=== PATIENT | female | born 1965 | race Caucasian/White ===

== ENCOUNTER 2016-10-03 15:47 | Inpatient (IN) | payer MEDICARE ==
[~2016-10-03] VITALS: Ht 157.5 cm; Wt 85.4 kg
--- NOTE | ~2016-10-03 | DS ---
PATIENT'S NAME: MARAH CUNNINGHAM [facility] AGE: 51 Y [address] ROOM: [id number] [place], [place] [address] LOCATION: GPCU ADMIT DATE: 10/03/2016 Discharge Summary DISCHARGE DATE: 10/09/2016 FAMILY PHYSICIAN: Tucker Tyson MD ATTENDING PHYSICIAN: Ulises Jiménez PRIMARY DIAGNOSES: 1. Chronic obstructive pulmonary disease exacerbation. 2. Acute on chronic hypoxic hypercarbic respiratory failure. 3. Bilateral lobe pneumonia. 4. Metabolic alkalosis. 5. Chronic conditions include seizure disorder, Parkinson disease, diabetes type 2, migraine headache. PRINCIPAL PROCEDURES: Done, none was indicated on the patient. LABORATORY DATA: On admission, ABG on admission was pH 7.29, PO2 114, pCO2 was 68; and the repeat the next day, pCO2 was 73, pH was 7.32, and PO2 was 65% on FiO2 of 40%. WBC on admission was 7.7, was stable throughout the hospital stay, prior to discharge was 10.5; H and H on admission was 11.8/38.1, prior to discharge was 11.6/38.6; platelets were 199, were stable throughout hospital stay, prior to discharge were 166. Sodium was stable throughout the hospital stay, upon discharge it was 141; potassium as well was stable throughout hospital stay, upon discharge was 3.9; bicarb on admission was 29, prior to discharge was 40, patient had received Diamox, after this was obtained 250 mg had a urine output of almost 1100 mL. Magnesium was stable throughout hospital stay, at 2.0 upon discharge. Phosphorus as well was stable. Liver function tests were within normal limits. Hemoglobin A1c was 6.1. Procalcitonin was 0.09. Valproic acid level was 59. MICROBIOLOGY: Blood culture was no growth after 5 days x2 sets. Urine for Legionella antigen was negative. Urine for streptococcal antigen was negative as well. HOSPITAL COURSE: For the history of present illness, please take a look at the H and P which was done by Dr. Jiménez. The patient was admitted to progressive care unit and was managed as a case of acute on chronic hypoxic hypercarbic respiratory failure which was attributed to a COPD exacerbation. She was started on high dose of Solu-Medrol and also was started on IV Levaquin. She was continued on the IV Levaquin. She was continued on antibiotics up until discharge when it was discontinued. Solu-Medrol was slowly tapered. At the initial onset of admission, she did require BiPAP for the first day and subsequently BiPAP was switched to p.r.n. only at nighttime. She did require the use of BiPAP at nighttime throughout her hospital stay. Progressively, her oxygen demand decreased from 5 L to her baseline of 3 L of PATIENT'S NAME: MARAH CUNNINGHAM [facility] AGE: 51 Y [address] ROOM: [id number] [place], [place] [address] LOCATION: GPCU ADMIT DATE: 10/03/2016 Discharge Summary DISCHARGE DATE: 10/09/2016 FAMILY PHYSICIAN: Tucker Tyson MD ATTENDING PHYSICIAN: Ulises Jiménez A nasal cannula with her hospital stay. Given her requirement of requiring a BiPAP at nighttime and also given her obesity, old records did show that the patient did get a sleep study test done sometime in April 2016 at [facility], which was essentially normal and did not have any sleep apnea. She was continued on the Solu-Medrol, continued on aggressive pulmonary toileting, and also by the second day of the hospital stay, she was started on physical therapy and occupational therapy and clinically she did improve with each day. On the day of discharge, her ABG which was obtained showed pCO2 of 77; however, clinically the patient appeared stable, was not drowsy, and she was having at that point her breakfast and she was basically back at her baseline; however, her CO2 on the chemistry did show a level of 40 and she was given Diamox for 4 days and she did have a urine output of around 1100 mL prior to discharge. Vital signs were stable upon discharge. She was on her baseline oxygen of 3 L chronically and she was discharged home. DISCHARGE INSTRUCTIONS: The patient is to follow up with her PCP and on upon visit, PCP is to repeat her BMP to follow up on the level of the CO2 as the patient was discharged home on Diamox for an additional 2 days. The patient was also discharged with home health. MEDICATIONS ON DISCHARGE: 1. Amitriptyline 150 mg p.o. q.h.s. 2. Librium 10 mg p.o. q.h.s. 3. Neurontin 300 mg p.o. 3 times daily. 4. Hydroxyzine 25-50 mg p.o. q.h.s. 5. Lovastatin 40 mg p.o. q.h.s. 6. Protonix 40 mg p.o. twice daily. 7. Levaquin 750 mg p.o. daily for an additional 5 more days. 8. Zoloft 150 mg p.o. q.h.s. 9. Valproic acid 500 mg p.o. twice daily. 10. Verapamil 60 mg p.o. 3 times daily. 11. DuoNeb 1 vial 4 times daily. 12. Breo Ellipta 1 puff every day. 13. Tylenol with Codeine No. 3 one-two tablets p.o. 4 times daily p.r.n. 14. Percocet 5/325 mg 1-2 tablets p.o. every 4 hours p.r.n. 15. Phenergan 25 mg p.o. q.4 hours p.r.n. 16. VESIcare 5 mg p.o. q.a.m. 17. Vitamin C 500 mg p.o. daily. 18. Albuterol 1 puff every 4 hours p.r.n. 19. Albuterol 1 vial every 4 hours p.r.n. 20. Diamox 250 mg daily p.o. for 2 more days, to start tomorrow on October 10, 2016. Discharge time spent on this patient is approximately 35 minutes, which included counseling the patient on her discharge planning. PATIENT'S NAME: MARAH CUNNINGHAM [facility] AGE: 51 Y [address] ROOM: [place] [address] [facility] ADMIT DATE: 10/03/2016 Discharge Summary DISCHARGE DATE: 10/09/2016 FAMILY PHYSICIAN: Tucker Tyson MD ATTENDING PHYSICIAN: Ulises Jiménez MD NORM KIMBLE/violet /[id number] d: 10/10/16 0125 t: 10/10/16 1652, DISCHARGE SUMMARY
--- NOTE | ~2016-10-03 | HP ---
PATIENT'S NAME: MARAH CUNNINGHAM [facility] AGE: 51 Y [address] ROOM: [place] [address] LOCATION: GPCU ADMIT DATE: 10/03/2016 History & Physical DISCHARGE DATE: FAMILY PHYSICIAN: Tucker Tyson MD ATTENDING PHYSICIAN: BONNIE MCCALL DATE OF SERVICE: CHIEF COMPLAINT: Shortness of breath. HISTORY OF PRESENT ILLNESS: A 51-year-old lady with a past medical history of COPD, oxygen dependent, presented to the outside physician with a chief complaint of shortness of breath, which has been going on for 2 weeks. She chronically used 2 L of oxygen at home at all the time. She started getting more short of breath than her usual and noticed change in the color of her sputum and increased frequency of her rescue inhaler at that time. At primary care physician's office, she was found to be hypoxic and then transferred over here in the private vehicle to the emergency department. On my encounter, she is saying that she is short of breath, feeling a little better after getting a DuoNeb treatment in the emergency department. Did report that she is having green sputum for past 2 weeks. Denied any fever or chills though. On further inquiry, she denied having any palpitations, any chest pain, any trouble with the eyes, any abdominal pain, any constipation, or any diarrhea. Of note, she said she had been in the wheelchair since 1993 and no diagnosis was made at that point. She denied any burning on urination, any constipation, or any diarrhea at this point. She endorsed having terrible migraine headaches as well. REVIEW OF SYSTEMS: All other systems reviewed and were negative except as mentioned in the HPI. PAST MEDICAL HISTORY: Significant for: 1. Chronic respiratory failure with 3 L of oxygen at home and mainly secondary to COPD. 2. Type 2 diabetes mellitus without insulin use. 3. Migraine headaches. 4. Epilepsy. 5. Parkinson's disease. 6. Rmwnlf-da-xoptlwp disease. 7. Lower back pain. 8. Gastroparesis. 9. Depression. PATIENT'S NAME: MARAH CUNNINGHAM [facility] AGE: 51 Y [address] ROOM: [place] [address] LOCATION: GPCU ADMIT DATE: 10/03/2016 History & Physical DISCHARGE DATE: FAMILY PHYSICIAN: Tucker Tyson MD ATTENDING PHYSICIAN: BONNIE MCCALL. Peripheral neuropathy. MEDICATIONS: Medications are being reconciled right now. ALLERGIES: THE PATIENT IS NOT ALLERGIC TO ANY MEDICATIONS. FAMILY HISTORY: Family history is significant for diabetes in mom. SOCIAL HISTORY: The patient quit smoking in 2014 after smoking lifelong. No alcohol or drug abuse. PHYSICAL EXAMINATION: VITAL SIGNS: Blood pressure 134/67, respiratory rate of 22, saturating 93% on 3 L of oxygen, and heart rate of 92. GENERAL: In mild acute distress due to shortness of breath. Alert and oriented x3. HEENT: Head: Atraumatic, normocephalic. Eyes: Nonicteric. No pallor. Oropharynx: Moist mucous membranes. CARDIOVASCULAR: Tachycardic. S1, S2. No murmur or gallops heard. LUNGS: Diffuse expiratory wheezes and decreased air entry bilaterally. ABDOMEN: Soft, distended, nontender, bowel sounds are present. EXTREMITIES: No clubbing, cyanosis, or edema. PSYCH: Normal affect, mood, and speech. MUSCULOSKELETAL: No muscle tenderness or joint swelling noted. LABORATORY DATA: Chest x-ray was reviewed by me and it does appear that there is infiltrate bilaterally in the lower lobes. Lab work was done in the emergency department, which is significant for ABG with a pH of 7.29, pCO2 of 68, pO2 of 114 on 3 L of oxygen. Pro-BNP was 188. CBC was unremarkable and so was the BMP except mild hyponatremia at 134. Procalcitonin was 0.09. ASSESSMENT: 1. Kuztg-px-ncxjlcz hypoxic as well as hypercarbic respiratory failure. 2. Chronic obstructive pulmonary disease exacerbation. 3. Bilateral lower lobe pneumonia. 4. Type 2 diabetes mellitus. 5. Migraine headaches. 6. Epilepsy. 7. Parkinson's disease. 8. Qoxfkx-bf-stzfxxx disease. PATIENT'S NAME: MARAH CUNNINGHAM [facility] AGE: 51 Y [address] ROOM: [id number] [place] [id number] LOCATION: GPCU ADMIT DATE: 10/03/2016 History & Physical DISCHARGE DATE: FAMILY PHYSICIAN: Tucker Tyson MD ATTENDING PHYSICIAN: BONNIE MCCALL 9. Lower back pain. 10. Depression. 11. Gastroparesis. 12. Peripheral neuropathy. PLAN: We are going to admit this patient to Progressive Care Unit. Inhalation treatment with DuoNeb have been started. One dose of Solu-Medrol IV has been given. We are going to put on noninvasive ventilation with BiPAP with settings of 15/5. We will continue to monitor her ABG and her clinical status. Levofloxacin has been started to treat her pneumonia as well as COPD exacerbation. We will control her diabetes with the sliding scale insulin and Accu-Cheks series. PT/OT will be ordered. Once the home medications are reconciled, we will restart all the home medications if appropriate. BONNIE MCCALL MD LU/modl /[id number] D: [id number] T: [id number] HISTORY & PHYSICAL
--- NOTE | ~2016-10-03 | ER ---
PATIENT'S NAME: MARAH CUNNINGHAM [facility] AGE: 51 Y [address] ROOM: [address] [address] LOCATION: [facility] ADMIT DATE: 10/03/2016 ER/Outpatient Report DISCHARGE DATE: FAMILY PHYSICIAN: Tucker Tyson MD ATTENDING PHYSICIAN: BONNIE MCCALL Time of Arrival: 1547 hours. Time of Evaluation: 1601 hours. IDENTIFICATION: A 51-year-old female. CHIEF COMPLAINT: Shortness of breath. HISTORY OF PRESENT ILLNESS: The patient is a 51-year-old female with a history of COPD, usually on home O2; according to her 3 L; according to Dr. Tyson, 1 to 2 L at home. She went to the clinic in [place] today with short of breath with saturations of 63% on O2, so they recommended she come here. She came here by private vehicle. On arrival, her saturations were 83% on 3 L. She is short of breath. She has had cough productive of green sputum. No fever or chills. No recent steroid use. ALLERGIES: IMITREX, SULFA, ASPIRIN, IBUPROFEN, ALDACTONE, AND MORPHINE. CURRENT MEDICATIONS: 1. Gabapentin 300 mg t.i.d. 2. Hydroxyzine 25 mg 1 to 2 at bedtime. 3. Chlordiazepoxide/amitriptyline 10/25 daily. 4. Sertraline 100 mg one and half tablet daily. 5. Pantoprazole 40 mg 2 times daily. 6. VESIcare 5 mg daily. 7. Breo Ellipta 100/25 one inhalation daily. 8. DuoNeb p.r.n., which she says she is not using. 9. Vitamin C 500 mg 2 times daily. 10. Reglan 5 mg t.i.d. 11. Fish oil 1000 mg t.i.d. 12. Mevacor 40 mg at bedtime. 13. Vitamin D3, 5000 units daily. 14. Valproic acid 250 mg b.i.d. 15. Seroquel 400 mg at bedtime. 16. Amitriptyline 150 mg at bedtime. PATIENT'S NAME: MARAH CUNNINGHAM [facility] AGE: 51 Y [address] ROOM: [id number] [place], [place] [address] LOCATION: [facility] ADMIT DATE: 10/03/2016 ER/Outpatient Report DISCHARGE DATE: FAMILY PHYSICIAN: Tucker Tyson MD ATTENDING PHYSICIAN: BONNIE MCCALL medications: 1. ProAir. 2. Verapamil. 3. Albuterol. 4. Percocet. 5. Promethazine. 6. Tylenol with Codeine. MEDICAL PROBLEMS: Obesity, migraine headaches, COPD, diabetic neuropathy, epilepsy, atypical bipolar disorder, restless legs syndrome, peripheral vascular disease, Parkinson disease, diabetes mellitus type 2, opioid dependence with opioid induced psychotic disorder, macrocytic anemia, vitamin D deficiency, cataract, low back pain, gastroparesis, and depression. PRIOR SURGERIES: Hysterectomy and appendectomy. SOCIAL HISTORY: The patient is . Lives in [place]. Tobacco use, the patient states she quit smoking 2 years ago. Alcohol use, denies. Drug use, denies. REVIEW OF SYSTEMS: All systems reviewed and negative other than what is noted in the HPI. PHYSICAL EXAMINATION: VITAL SIGNS: Weight 82.3 kg, blood pressure 119/65, pulse 106, respirations 22, temperature 98.7, and saturations 83% on 3 L per nasal cannula. GENERAL: A 51-year-old female, in mild distress. HEENT: Head: Normocephalic and atraumatic. Ears: TMs translucent both ears. Eyes: Pupils equal and reactive to light and accommodation. Extraocular movements intact. Nose: Mucosa pink. No lesions or drainage. Mouth: No lesions. Pharynx benign. NECK: Supple. No lymphadenopathy. LUNGS: Diminished breath sounds throughout. HEART: Sinus tachycardia. ABDOMEN: Bowel sounds present. Soft. Nondistended. No hepatosplenomegaly. No palpable masses. Nontender. SKIN: [place], warm, and dry. No lesions or rashes noted. NEURO: The patient is alert and oriented x4. Cranial nerves II through XII grossly intact. Motor strength 5/5 throughout. Sensation is intact to light touch. No lower extremity edema. LABORATORY DATA AND X-RAYS: Blood cultures x2 pending. Sodium 134, potassium 3.9, chloride 95, CO2 of 29, PATIENT'S NAME: MARAH CUNNINGHAM [facility] AGE: 51 Y [address] ROOM: [id number] [place], [place] [address] LOCATION: GPCU ADMIT DATE: 10/03/2016 ER/Outpatient Report DISCHARGE DATE: FAMILY PHYSICIAN: Tucker Tyson MD ATTENDING PHYSICIAN: BONNIE MCCALL BUN 12, creatinine 0.9, and blood sugar 124. Liver enzymes normal. ProBNP 188. Procalcitonin 0.09. ABGs; pH of 7.29, pCO2 of 68, pO2 of 114, and lactate 0.55. Hemoglobin 11.8, hematocrit 38.1, platelets 199, and white count 7.7 with a normal differential. The patient has a do not resuscitate order and a copy is included on the chart. She requests no intubation if necessary. EKG showed sinus tachycardia at 106 beats per minute, nonspecific ST-T wave changes. Chest x-ray showed COPD changes and bibasilar infiltrate. IMPRESSION: 1. Chronic obstructive pulmonary disease exacerbation. 2. Pneumonia with hypoxia. 3. Respiratory acidosis. 4. Mild hyponatremia. 5. Type 2 diabetes mellitus. 6. Epilepsy. EMERGENCY DEPARTMENT COURSE: An IV was initiated. The patient does have a Port-A-Cath, but has not used it or flushed it for 4 to 5 months. Peripheral IV was initiated. The patient was given a DuoNeb breathing treatment, Solu-Medrol 125 mg IV, and Levaquin 750 mg IV. The patient's O2 saturations improved to 88% to 91% on 3 L per nasal cannula and the patient will be admitted by Dr. Mccall, hospitalist. Dr. Mccall evaluated the patient in the emergency room and planned for inpatient admission. 30 minutes of critical care was provided with this patient. JCAKY CH MD CAR/modl /[id number] d: 10/04/16 0036 t: 10/11/16 192, OUTPATIENT REPORT
[2016-10-03 16:37] LABS: BASOPHIL # 0.1 K/uL (0.0-0.2); BASOPHIL % 0.8 %; EOSINOPHIL # 0.1 K/uL (0.0-0.5); EOSINOPHIL % 0.9 %; HEMATOCRIT 38.1 % (33.0-46.0); HEMOGLOBIN 11.8 g/dL (10.0-15.0); IMMATURE GRANULOCYTE # 0.2 K/uL (0.0-0.3); LYMPHOCYTE # 1.5 K/uL (0.8-4.0); LYMPHOCYTE % 19.1 %; MCH 28.8 pg (27.0-34.0); MCV 92.9 fl (83.0-98.0); MONOCYTE # 1.2 K/uL (0.0-1.0); MONOCYTE % 16.1 %; MPV 9.2 fl (9.4-12.4); NEUTROPHIL # (ANC) 4.7 K/uL (1.8-7.8); NEUTROPHIL % 61.1 %; NRBC % 0.3 /100WBC (0-0.00); PLATELET COUNT 199 K/uL (150-450); RDW-CV 13.9 % (11.9-14.6); WBC 7.7 K/uL (4.0-11.0)
[2016-10-03 16:38] LABS: BICARBONATE 32.5 mmol/L (18.0-23.0); PCO2 68 mmHg (35-45); PO2 114 mmHg (80-90)
[2016-10-03 16:39] LABS: LACTATE 0.55 mEq/L (0.50-1.60)
[2016-10-03 16:56] LABS: ALK PHOS 83 IU/L (33-138); ALT 20 IU/L (12-78); ANION GAP 13.9 (10.0-19.0); AST 29 IU/L (10-40); BLOOD UREA NITROGEN 12 mg/dL (6-24); CALCIUM 9.1 mg/dL (8.5-10.5); CHLORIDE 95 mMol/L (96-110); CO2 29 mMol/L (22-32); CREATININE 0.9 mg/dL (0.5-1.1); ESTIMATED GFR (MDRD EQUATION) > 60; POTASSIUM 3.9 mMol/L (3.7-5.1); SODIUM 134 mMol/L (135-145); TOTAL BILIRUBIN 0.4 mg/dL (0.0-1.5); TOTAL PROTEIN 7.9 g/dL (6.0-8.4)
[2016-10-03] MEDS ORDERED: ATARAX25 MG PO (19:21)
[2016-10-03] MEDS ORDERED: NEURONTIN300 MG PO (19:21)
[2016-10-03] MEDS ORDERED: LIBRIUM10 MG PO (19:22)
[2016-10-03] MEDS ORDERED: PROTONIX40 MG PO (19:23)
[2016-10-03] MEDS ORDERED: ZOLOFT100 MG PO (19:23)
[2016-10-03] MEDS ORDERED: VESICARE5 MG PO (19:24)
[2016-10-03] MEDS ORDERED: DUONEB INH (19:25)
[2016-10-03] MEDS ORDERED: BREO ELLIPTA 11 EACH INH (19:25)
[2016-10-03] MEDS ORDERED: ASCORBIC ACID500 MG PO (19:27)
[2016-10-03] MEDS ORDERED: LOVASTATIN40 MG PO (19:27)
[2016-10-03] MEDS ORDERED: DEPAKENE250 MG PO (19:29)
[2016-10-03] MEDS ORDERED: AMITRIPTYLINE150 MG PO (19:30)
[2016-10-03] MEDS ORDERED: SEROQUEL400 MG PO (19:30)
[2016-10-03] MEDS ORDERED: PROAIR HFA8.5 GM INH (19:31)
[2016-10-03] MEDS ORDERED: CALAN120 MG PO (19:32)
[2016-10-03] MEDS ORDERED: ALBUTEROL2.5 MG/31 INH (19:33)
[2016-10-03] MEDS ORDERED: PERCOCET 5-3251 EACH PO (19:34)
[2016-10-03] MEDS ORDERED: PHENERGAN25 M1 PO (19:35)
[2016-10-03] MEDS ORDERED: TYLENOL WITH C1 EACH PO (19:35)
[2016-10-03 22:31] LABS: BICARBONATE 29.4 mmol/L (18.0-23.0); PCO2 62 mmHg (35-45); PO2 76 mmHg (80-90)
[2016-10-04 05:15] LABS: PO2 65 mmHg (80-90)
[2016-10-04 05:20] LABS: BICARBONATE 37.6 mmol/L (18.0-23.0)
[2016-10-04 05:23] LABS: PCO2 73 mmHg (35-45)
[2016-10-04 23:16] LABS: PCO2 63 mmHg (35-45); PO2 60 mmHg (80-90)
[2016-10-05 04:13] LABS: HEMATOCRIT 37.1 % (33.0-46.0); HEMOGLOBIN 11.4 g/dL (10.0-15.0); MCH 29.1 pg (27.0-34.0); MCHC 30.7 gm/dL (32.0-36.5); MCV 94.6 fl (83.0-98.0); MPV 9.2 fl (9.4-12.4); PLATELET COUNT 181 K/uL (150-450); RBC 3.92 M/uL (3.50-5.50); RDW-CV 13.8 % (11.9-14.6)
[2016-10-05 04:30] LABS: ALBUMIN 2.7 gm/dL (3.5-5.0); ANION GAP 12.4 (10.0-19.0); CALCIUM 9.1 mg/dL (8.5-10.5); PHOSPHORUS 3.2 mg/dL (2.5-4.9); POTASSIUM 4.4 mMol/L (3.7-5.1)
[2016-10-05 05:40] LABS: ABSOLUTE NEUTROPHIL CT (ANC) 3.7 K/uL (1.8-7.8); BANDED NEUTROPHIL # 0.6 K/uL (0.0-0.1); BANDED NEUTROPHILS % 11 %; LYMPHOCYTE # 1.1 K/uL (0.8-4.0); LYMPHOCYTE % 21 %; MONOCYTE # 0.3 K/uL (0.0-1.0); SEGMENTED NEUTROPHIL # 3.1 K/uL (1.8-7.8); SEGMENTED NEUTROPHIL % 62 %
[2016-10-06 05:58] LABS: HEMATOCRIT 38.3 % (33.0-46.0); HEMOGLOBIN 11.5 g/dL (10.0-15.0); MCH 28.8 pg (27.0-34.0); PLATELET COUNT 187 K/uL (150-450); RBC 3.99 M/uL (3.50-5.50); RDW-CV 13.7 % (11.9-14.6); WBC 7.5 K/uL (4.0-11.0)
[2016-10-06 06:01] LABS: ALBUMIN 2.8 gm/dL (3.5-5.0); ANION GAP 9.7 (10.0-19.0); BLOOD UREA NITROGEN 20 mg/dL (6-24); CALCIUM 9.4 mg/dL (8.5-10.5); CHLORIDE 98 mMol/L (96-110); CREATININE 0.9 mg/dL (0.5-1.1); ESTIMATED GFR (MDRD EQUATION) > 60; POTASSIUM 4.7 mMol/L (3.7-5.1); SODIUM 139 mMol/L (135-145)
[2016-10-06 06:02] LABS: CO2 36 mMol/L (22-32)
[2016-10-06 06:46] LABS: ABSOLUTE NEUTROPHIL CT (ANC) 5.4 K/uL (1.8-7.8); BANDED NEUTROPHIL # 1.1 K/uL (0.0-0.1); BANDED NEUTROPHILS % 14 %; LYMPHOCYTE % 26 %; MONOCYTE # 0.2 K/uL (0.0-1.0); SEGMENTED NEUTROPHIL # 4.4 K/uL (1.8-7.8); SEGMENTED NEUTROPHIL % 58 %
[2016-10-07 08:17] LABS: HEMATOCRIT 43.3 % (33.0-46.0); HEMOGLOBIN 12.9 g/dL (10.0-15.0); MCH 28.8 pg (27.0-34.0); MCHC 29.8 gm/dL (32.0-36.5); MCV 96.7 fl (83.0-98.0); MPV 8.7 fl (9.4-12.4); PLATELET COUNT 170 K/uL (150-450); RBC 4.48 M/uL (3.50-5.50); RDW-CV 13.7 % (11.9-14.6); WBC 8.7 K/uL (4.0-11.0)
[2016-10-07 08:20] LABS: ALBUMIN 2.8 gm/dL (3.5-5.0); ANION GAP 11.5 (10.0-19.0); CALCIUM 9.3 mg/dL (8.5-10.5); PHOSPHORUS 3.4 mg/dL (2.5-4.9); POTASSIUM 4.5 mMol/L (3.7-5.1)
[2016-10-07 10:38] LABS: ABSOLUTE NEUTROPHIL CT (ANC) 5.1 K/uL (1.8-7.8); BANDED NEUTROPHIL # 0.8 K/uL (0.0-0.1); BANDED NEUTROPHILS % 9 %; LYMPHOCYTE # 2.4 K/uL (0.8-4.0); LYMPHOCYTE % 28 %; MONOCYTE # 0.3 K/uL (0.0-1.0); SEGMENTED NEUTROPHIL # 4.4 K/uL (1.8-7.8); SEGMENTED NEUTROPHIL % 50 %
[2016-10-08 04:35] LABS: HEMATOCRIT 38.6 % (33.0-46.0); HEMOGLOBIN 11.6 g/dL (10.0-15.0); MCH 28.9 pg (27.0-34.0); MCHC 30.1 gm/dL (32.0-36.5); MCV 96.3 fl (83.0-98.0); MPV 8.9 fl (9.4-12.4); PLATELET COUNT 166 K/uL (150-450); RBC 4.01 M/uL (3.50-5.50); RDW-CV 13.8 % (11.9-14.6); WBC 10.5 K/uL (4.0-11.0)
[2016-10-08 04:36] LABS: ANION GAP 9.3 (10.0-19.0); BLOOD UREA NITROGEN 21 mg/dL (6-24); CALCIUM 8.8 mg/dL (8.5-10.5); CHLORIDE 97 mMol/L (96-110); CREATININE 0.8 mg/dL (0.5-1.1); ESTIMATED GFR (MDRD EQUATION) > 60; POTASSIUM 4.3 mMol/L (3.7-5.1); SODIUM 140 mMol/L (135-145)
[2016-10-08 04:38] LABS: CO2 38 mMol/L (22-32)
[2016-10-08 05:24] LABS: ABSOLUTE NEUTROPHIL CT (ANC) 5.9 K/uL (1.8-7.8); BANDED NEUTROPHIL # 1.1 K/uL (0.0-0.1); BANDED NEUTROPHILS % 10 %; LYMPHOCYTE # 2.7 K/uL (0.8-4.0); LYMPHOCYTE % 26 %; MONOCYTE # 0.4 K/uL (0.0-1.0); SEGMENTED NEUTROPHIL # 4.8 K/uL (1.8-7.8); SEGMENTED NEUTROPHIL % 46 %
[2016-10-09 10:18] LABS: BICARBONATE 45.6 mmol/L (18.0-23.0); PO2 68 mmHg (80-90)
[2016-10-09 10:23] LABS: PCO2 77 mmHg (35-45)
[2016-10-09 10:49] LABS: ANION GAP 7.9 (10.0-19.0); BLOOD UREA NITROGEN 18 mg/dL (6-24); CALCIUM 8.4 mg/dL (8.5-10.5); CHLORIDE 97 mMol/L (96-110); CREATININE 0.9 mg/dL (0.5-1.1); ESTIMATED GFR (MDRD EQUATION) > 60; POTASSIUM 3.9 mMol/L (3.7-5.1); SODIUM 141 mMol/L (135-145)
[2016-10-09 10:54] LABS: CO2 40 mMol/L (22-32)
[2016-10-09] MEDS ORDERED: LEVAQUIN750 MG PO (15:32)
[2016-10-09] MEDS ORDERED: DIAMOX250 MG PO (15:44)
[2016-10-09] MEDS ORDERED: DELTASONE20 MG (15:49)
== END 2016-10-09 18:42 | disposition home health service (06) | DRG 189 ==
LOC: GMED 15:47 → GPCU 17:59
PROVIDERS: Family Medicine; Hospitalist; Internal Medicine; ADMIT Internal Medicine
PROC: 5A09357 Assistance with Respiratory Ventilation, Less than 24 Consecutive Hours, Continuous Positive Airway Pressure (ICD-10-PCS; principal; 2016-10-03)
DX: J96.21 Acute and chronic respiratory failure with hypoxia (principal); J18.1 Lobar pneumonia, unspecified organism; E87.4 Mixed disorder of acid-base balance; G82.20 Paraplegia, unspecified; E44.0 Moderate protein-calorie malnutrition; J44.0 Chronic obstructive pulmonary disease with (acute) lower respiratory infection; J44.1 Chronic obstructive pulmonary disease with (acute) exacerbation; E87.1 Hypo-osmolality and hyponatremia; G20 Parkinson's disease; E11.42 Type 2 diabetes mellitus with diabetic polyneuropathy; D63.8 Anemia in other chronic diseases classified elsewhere; F32.9 Major depressive disorder, single episode, unspecified; G40.909 Epilepsy, unspecified, not intractable, without status epilepticus; G43.909 Migraine, unspecified, not intractable, without status migrainosus; Z68.33 Body mass index [BMI] 33.0-33.9, adult
CPT/HCPCS: J1120; J1642; J1650; J1956; J2175; J2550; J2930; J2997; J7050; J7512